=== PATIENT | male | born 1985 | race Caucasian/White ===

== ENCOUNTER 2021-02-19 09:49 | Emergency (ER) | payer MEDICAID ==
[~2021-02-19] VITALS: Ht 175.3 cm; Wt 57.0 kg
[2021-02-19 11:11] LABS: *AMPHETAMINES SCREEN URINE NEGATIVE (NEGATIVE); *BARBITURATES SCREEN URINE NEGATIVE (NEGATIVE)
[2021-02-19 11:12] LABS: *BENZODIAZEPINES SCREEN URINE NEGATIVE (NEGATIVE); *COCAINE SCREEN URINE NEGATIVE (NEGATIVE); METHADONE URINE SCREEN NEGATIVE (NEGATIVE); OPIATES URINE SCREEN NEGATIVE (NEGATIVE); PHENCYCLIDINE URINE SCREEN NEGATIVE (NEGATIVE)
[2021-02-19 11:13] LABS: CANNABINOID URINE SCREEN NEGATIVE (NEGATIVE)
[2021-02-19 11:30] VITALS: BP 111/86
[2021-02-19] MEDS ORDERED: BACL-141 MT (12:09)
[2021-02-19] MEDS ORDERED: IBUP-2029 MT (12:09)
[2021-02-19] MEDS ORDERED: ACET-2708 MT (12:09)
== END 2021-02-19 12:20 | disposition home or self-care (01) ==
LOC: ER 09:49
DX: F41.9 Anxiety disorder, unspecified (principal); S46.212A Strain of muscle, fascia and tendon of other parts of biceps, left arm, initial encounter; Z91.018 Allergy to other foods; Z98.890 Other specified postprocedural states; X58.XXXA Exposure to other specified factors, initial encounter; Y93.89 Activity, other specified; Y92.89 Other specified places as the place of occurrence of the external cause; Y99.8 Other external cause status
CPT/HCPCS: 71045; 80305; 93005; 93971; 99285

== ENCOUNTER 2022-08-15 08:26 | Emergency (ER) | payer MEDICAID, OTHER ==
[~2022-08-15] VITALS: Ht 175.3 cm; Wt 59.0 kg
[~2022-08-15 08:26] MED LIST: ACET-2708 MT; BACL-141 MT; IBUP-2029 MT
[2022-08-15] MEDS ORDERED: IBUPROFEN 600MG TABLET PO STA (09:02)
[2022-08-15 09:56] LABS: BASOPHILS % 0.5 % (0.0-2.0); EOSINOPHILS % 3.4 % (0.0-5.0); HEMATOCRIT. 43.1 % (42.0-52.0); HEMOGLOBIN. 14.7 g/dL (14.0-18.0); LYMPHOCYTES % 18.9 % (20.0-50.0); MEAN CORPUSCULAR HEMOGLOBIN 29.3 pg (28.0-32.0); MEAN CORPUSCULAR VOLUME 85.7 fL (80.0-94.0); MEAN PLATELET VOLUME 7.6 fl (7.4-10.4); MONOCYTES % 6.9 % (2.0-8.0); NEUTROPHILS % 70.3 % (40.0-76.0); PLATELET 252 x1000/uL (130-400); RED BLOOD CELL COUNT 5.02 mill/uL (4.7-6.1); RED CELL DISTRIBUTION WIDTH 13.2 % (11.6-14.6)
[2022-08-15 10:03] LABS: CHLORIDE 106 mEq/L (98-107)
[2022-08-15] MEDS ORDERED: IBUP-2029 MT (12:08)
[2022-08-15 12:23] VITALS: BP 101/63
[2022-08-15] MEDS ORDERED: IBUPROFEN 600MG TABLET PO NR (12:30)
== END 2022-08-15 12:48 | disposition home or self-care (01) ==
LOC: ER 08:59
DX: R07.89 Other chest pain (principal); Z91.018 Allergy to other foods; Z88.2 Allergy status to sulfonamides; Z98.890 Other specified postprocedural states
CPT/HCPCS: 36415; 71045; 80053; 84484; 85025; 93005; 99285

== ENCOUNTER 2023-12-27 03:54 | Emergency (ER) | payer MEDICAID, OTHER ==
[~2023-12-27] VITALS: Ht 175.3 cm; Wt 63.0 kg
[2023-12-27 04:04] VITALS: BP 104/74; PULSE 94; RESP 16; TEMP 98.2; O2SAT 94
[2023-12-27] MEDS ORDERED: MECLIZINE 25MG TABLET PO ONE (04:30)
[2023-12-27 04:38] LABS: BASOPHILS % 0.5 % (0.0-2.0); HEMATOCRIT. 42.7 % (42.0-52.0); HEMOGLOBIN. 13.9 g/dL (14.0-18.0); MEAN CORPUSCULAR HEMOGLOBIN 29.1 pg (28.0-32.0); MEAN CORPUSCULAR HGB CONC 32.5 g/dL (31.0-37.0); MEAN CORPUSCULAR VOLUME 89.3 fL (80.0-94.0); MEAN PLATELET VOLUME 7.9 fl (7.4-10.4); MONOCYTES % 6.9 % (2.0-8.0); NEUTROPHILS % 69.6 % (40.0-76.0); PLATELET 272 x1000/uL (130-400); RED BLOOD CELL COUNT 4.78 mill/uL (4.7-6.1)
[2023-12-27 04:49] LABS: CHLORIDE 105 mEq/L (98-107); POTASSIUM 3.4 mEq/L (3.5-5.1); SODIUM 138 mEq/L (136-145)
[2023-12-27 04:50] LABS: CALCIUM 9.2 mg/dL (8.7-10.4); CARBON DIOXIDE 25 mEq/L (21-32)
[2023-12-27 04:55] LABS: GLUCOSE 146 mg/dL (70-105); UREA NITROGEN BLOOD 11 mg/dL (9-23)
[2023-12-27 04:57] LABS: TROPONIN I HIGH SENSITIVITY < 4 ng/L (3.0-53)
[2023-12-27] MEDS: MECLIZINE 12.5MG TABLET PO NR (06:37)
[2023-12-27] MEDS ORDERED: MAG355OR21 MT (07:21)
[2023-12-27] MEDS ORDERED: TOPUD MT (07:21)
[2023-12-27] MEDS ORDERED: FAMO-135 MT (07:21)
== END 2023-12-27 08:15 | disposition home or self-care (01) ==
LOC: ER 03:54
DX: R07.89 Other chest pain (principal); F32.A Depression, unspecified; F41.9 Anxiety disorder, unspecified; Z88.2 Allergy status to sulfonamides; Z91.018 Allergy to other foods; Z79.899 Other long term (current) drug therapy; Z98.890 Other specified postprocedural states
CPT/HCPCS: 99285; 71045; 80048; 85025; 84484; 36415; 93005; J8597